=== PATIENT | female | born 1960 | race Hispanic/Latino ===

== ENCOUNTER 2024-01-31 19:51 | Inpatient (IN) | payer OTHER ==
[~2024-01-31] VITALS: Ht 165.1 cm; Wt 77.1 kg
[2024-01-31 20:58] VITALS: TEMP 98.2
[2024-01-31 20:58] LABS: BASOPHILS % 0.2 % (0.0-1.0); HEMATOCRIT 26.1 % (34.2-44.1); HEMOGLOBIN 8.3 g/dL (12.0-16.0); LYMPHOCYTES # (AUTO) 1.9 (1.0-3.2); LYMPHOCYTES % 15.7 % (18.0-39.1); MEAN CORPUSCULAR HEMOGLOBIN 29.7 pg (28-32); MEAN CORPUSCULAR HGB CONC 31.8 g/dL (31-35); MEAN CORPUSCULAR VOLUME 93.5 fL (81-99); MONOCYTES # (AUTO) 0.9 (0.2-0.8); MONOCYTES % 7.2 % (4.4-11.3); NEUTROPHILS # (AUTO) 9.2 (2.1-6.9); NEUTROPHILS % 76.2 % (38.7-80.0); PLATELET COUNT 131 x10e3/uL (140-360); RED BLOOD COUNT 2.79 x10e6/uL (3.6-5.1); RED CELL DISTRIBUTION WIDTH 15.4 % (11.7-14.4); WHITE BLOOD COUNT 12.13 x10e3/uL (4.8-10.8)
[2024-01-31] MEDS: ONDANSETRON HCL INJ 2MG/ML 2ML 2 MG/ML VIAL IV STA (21:03)
[2024-01-31 21:06] LABS: INR 1.49; PROTHROMBIN TIME 18.9 seconds (11.9-14.5)
[2024-01-31] MEDS: SODIUM CHLORIDE 0.9% 1000ML 1,000 ML IV ONE (21:08)
[2024-01-31] MEDS: OCTREOTIDE ACETATE 0.05 MG/ML AMP IV ONE (21:08)
[2024-01-31] MEDS: OCTREOTIDE ACETATE 500 MCG in SODIUM CHLORIDE 0.9% 250ML 249 ML IV SCH (21:08)
[2024-01-31 21:14] LABS: LIPASE 46 U/L (8-78)
[2024-01-31 21:16] LABS: ALBUMIN 3.1 g/dL (3.5-5.0); ALBUMIN/GLOBULIN RATIO 1.1 (0.8-2.0); ANION GAP 21.9 mmol/L (8-16); BILIRUBIN,TOTAL 1.1 mg/dL (0.2-1.2); CALCIUM 8.2 mg/dL (8.4-10.2); CREATININE, SERUM 1.13 mg/dL (0.57-1.11); POTASSIUM 3.9 mmol/L (3.5-5.1)
[2024-01-31 21:17] LABS: ETHANOL < 10.0 mg/dL (0.0-10.0)
[2024-01-31 21:35] LABS: TROPONIN I 0.003 ng/mL (0-0.300)
[2024-01-31 21:37] VITALS: PULSE 122; RESP 15
[2024-01-31] MEDS ORDERED: ACETAMINOPHEN 325 MG TAB PO STA (22:38)
[2024-01-31] MEDS ORDERED: DEXTROSE 50% SYRINGE 50 ML IV PRN (22:45)
[2024-01-31] MEDS ORDERED: ONDANSETRON HCL INJ 2MG/ML 2ML 2 MG/ML VIAL IV PRN (22:45)
[2024-01-31] MEDS ORDERED: SODIUM CHLORIDE FLUSH 10 ML SYR INJ PRN (22:45)
[2024-01-31] MEDS: PHYTONADIONE 10 MG/ML AMP IV ONE (22:58)
[2024-01-31 23:00] VITALS: PULSE 108; RESP 17; O2SAT 99
[2024-01-31 23:41] VITALS: BP 90/61; PULSE 128; RESP 25; TEMP 98.2; O2SAT 100
[2024-02-01] VITALS (58 sets, daily range): BP systolic 82–140; BP diastolic 54–80; PULSE 74–128; RESP 0–27; TEMP 97.3–98.8; O2SAT 92–100
[2024-02-01] MEDS ORDERED: SODIUM CHLORIDE 0.9% 250ML 250 ML ONE (00:03)
[2024-02-01] MEDS: SODIUM CHLORIDE 0.9% 1000ML 250 ML IV SCH (00:15)
[2024-02-01] MEDS: SODIUM CHLORIDE 0.9% 250ML 250 ML IV ONE ×2 (00:32→23:03)
[2024-02-01] MEDS: METOCLOPRAMIDE HCL 10 MG/2ML VIAL IV SCH (04:34)
[2024-02-01] MEDS: PHYTONADIONE 10 MG/ML AMP IV ONE (04:36)
[2024-02-01] MEDS ORDERED: METFORMIN HCL500 MG PO (07:16)
[2024-02-01] MEDS: INSULIN REGULAR, HUMAN 100 UNIT/1 ML SQ SCH (07:30)
[2024-02-01 09:44] LABS: HEMATOCRIT 25.2 % (34.2-44.1); HEMOGLOBIN 8.2 g/dL (12.0-16.0)
[2024-02-01 09:55] LABS: INR 1.52; PROTHROMBIN TIME 19.2 seconds (11.9-14.5)
[2024-02-01 10:02] LABS: ALBUMIN 2.5 g/dL (3.5-5.0); ALBUMIN/GLOBULIN RATIO 1.3 (0.8-2.0); ANION GAP 11.9 mmol/L (8-16); BILIRUBIN,TOTAL 0.7 mg/dL (0.2-1.2); CREATININE, SERUM 0.98 mg/dL (0.57-1.11); POTASSIUM 3.9 mmol/L (3.5-5.1); TOTAL PROTEIN 4.5 g/dL (6.5-8.1)
[2024-02-01 14:29] LABS: CHOL/HDL RATIO 2.6 (3.0-3.6)
[2024-02-01] MEDS: THIAMINE HCL 100 MG TAB PO SCH (16:00)
[2024-02-01] MEDS: FOLIC ACID 1 MG TAB PO SCH (16:00)
[2024-02-01] MEDS: CARVEDILOL 12.5 MG TAB PO ONE (16:01)
[2024-02-01] MEDS: ACETAMINOPHEN 325 MG TAB ONE (17:39)
[2024-02-01 19:21] LABS: HEMOGLOBIN 7.5 g/dL (12.0-16.0)
[2024-02-01 19:29] LABS: HEMATOCRIT 22.8 % (34.2-44.1)
[2024-02-01] MEDS: ACETAMINOPHEN 325 MG TAB PO PRN (23:36)
[2024-02-02] VITALS (27 sets, daily range): BP systolic 93–124; BP diastolic 49–82; PULSE 59–89; RESP 12–23; TEMP 98.2–99.3; O2SAT 94–100
[2024-02-02 06:40] LABS: ANION GAP 10.9 mmol/L (8-16); CALCIUM 7.9 mg/dL (8.4-10.2); CREATININE, SERUM 0.97 mg/dL (0.57-1.11); MAGNESIUM 1.7 MG/DL (1.3-2.1); PHOSPHORUS 3.6 MG/DL (2.3-4.7); POTASSIUM 3.9 mmol/L (3.5-5.1)
[2024-02-02 06:54] LABS: BASOPHILS % 0.2 % (0.0-1.0); HEMATOCRIT 25.5 % (34.2-44.1); HEMOGLOBIN 8.4 g/dL (12.0-16.0); LYMPHOCYTES # (AUTO) 0.9 (1.0-3.2); LYMPHOCYTES % 16.8 % (18.0-39.1); MEAN CORPUSCULAR HEMOGLOBIN 30.4 pg (28-32); MEAN CORPUSCULAR HGB CONC 32.9 g/dL (31-35); MEAN CORPUSCULAR VOLUME 92.4 fL (81-99); MONOCYTES # (AUTO) 0.5 (0.2-0.8); MONOCYTES % 10.5 % (4.4-11.3); NEUTROPHILS # (AUTO) 3.6 (2.1-6.9); NEUTROPHILS % 71.7 % (38.7-80.0); RED BLOOD COUNT 2.76 x10e6/uL (3.6-5.1)
[2024-02-02 06:56] LABS: PLATELET COUNT 50 x10e3/uL (140-360); WHITE BLOOD COUNT 5.07 x10e3/uL (4.8-10.8)
[2024-02-02] MEDS: CEPACOL SORE THROAT LOZENGES PO PRN ×2 (11:54→22:36)
[2024-02-02] MEDS: CARVEDILOL 12.5 MG TAB PO SCH (11:55)
[2024-02-02] MEDS: SODIUM CHLORIDE 0.9% 250ML 250 ML IV ONE (11:56)
[2024-02-02] MEDS ORDERED: GUAIFENESIN/DEXTROMETHORPHAN LIQD 5 ML UDC NG PRN (14:30)
[2024-02-02] MEDS: BENZONATATE 100 MG CAP PO SCH (17:13)
[2024-02-02] MEDS: GUAIFENESIN/DEXTROMETHORPHAN LIQD 5 ML UDC NG SCH (19:05)
[2024-02-02] MEDS: PROPRANOLOL HCL 10 MG TAB PO SCH (22:37)
[2024-02-03] VITALS: BP 124/67; PULSE 70; RESP 18; TEMP 98.5; O2SAT 97
[2024-02-03 04:00] VITALS: BP 115/62; PULSE 71; RESP 18; TEMP 98.4; O2SAT 97
[2024-02-03 06:29] LABS: BASOPHILS % 0.5 % (0.0-1.0); EOSINOPHILS % 0.5 % (0.0-6.0); HEMATOCRIT 26.6 % (34.2-44.1); HEMOGLOBIN 8.6 g/dL (12.0-16.0); LYMPHOCYTES # (AUTO) 1.1 (1.0-3.2); MEAN CORPUSCULAR HEMOGLOBIN 30.3 pg (28-32); MEAN CORPUSCULAR HGB CONC 32.3 g/dL (31-35); MEAN CORPUSCULAR VOLUME 93.7 fL (81-99); MONOCYTES # (AUTO) 0.5 (0.2-0.8); MONOCYTES % 11.3 % (4.4-11.3); NEUTROPHILS # (AUTO) 2.7 (2.1-6.9); NEUTROPHILS % 61.2 % (38.7-80.0); PLATELET COUNT 43 x10e3/uL (140-360); RED BLOOD COUNT 2.84 x10e6/uL (3.6-5.1); WHITE BLOOD COUNT 4.34 x10e3/uL (4.8-10.8)
[2024-02-03 07:08] LABS: ANION GAP 10.7 mmol/L (8-16); CALCIUM 7.8 mg/dL (8.4-10.2); CREATININE, SERUM 0.87 mg/dL (0.57-1.11); MAGNESIUM 1.6 MG/DL (1.3-2.1); PHOSPHORUS 2.9 MG/DL (2.3-4.7); POTASSIUM 3.7 mmol/L (3.5-5.1)
[2024-02-03 08:00] VITALS: BP 134/68; PULSE 72; RESP 16; TEMP 98.2; O2SAT 100
[2024-02-03 09:00] VITALS: BP 134/68; PULSE 72; RESP 16; TEMP 98.2; O2SAT 100
[2024-02-03] MEDS ORDERED: B-1100 MG PO (10:55)
[2024-02-03] MEDS ORDERED: PANTOPRAZOLE SO40 MG PO (10:55)
[2024-02-03] MEDS ORDERED: INDERAL10 MG PO (10:55)
[2024-02-03] MEDS ORDERED: Folic Acid PO (10:55)
[2024-02-03 12:00] VITALS: BP 143/62; PULSE 69; RESP 16; TEMP 98.7; O2SAT 100
== END 2024-02-03 13:21 | disposition home or self-care (01) | DRG 432 ==
LOC: ER 19:55 → ERHOLD 22:45 → ICU 23:25 → MED/SURG 02-02 21:47
PROVIDERS: ADMIT Internal Medicine; ATTEND Internal Medicine
PROC: 30233N1 Transfusion of Nonautologous Red Blood Cells into Peripheral Vein, Percutaneous Approach (ICD-10-PCS; 2024-01-31)
PROC: 06L38CZ Occlusion of Esophageal Vein with Extraluminal Device, Via Natural or Artificial Opening Endoscopic (ICD-10-PCS; principal; 2024-02-01 14:44)
DX: K70.30 Alcoholic cirrhosis of liver without ascites (principal); I85.11 Secondary esophageal varices with bleeding; N17.9 Acute kidney failure, unspecified; E87.20 Acidosis, unspecified; K76.6 Portal hypertension; D64.9 Anemia, unspecified; D69.59 Other secondary thrombocytopenia; I10 Essential (primary) hypertension; E11.9 Type 2 diabetes mellitus without complications; F10.10 Alcohol abuse, uncomplicated; K21.9 Gastro-esophageal reflux disease without esophagitis; Z90.49 Acquired absence of other specified parts of digestive tract; Z90.710 Acquired absence of both cervix and uterus; Z87.891 Personal history of nicotine dependence
CPT/HCPCS: 36415; 43255; 80048; 80053; 80061; 80320; 82140; 82948; 83036; 83690; 83735; 84100; 84484; 85014; 85018; 85025; 85610; 86850; 86900; 86920; 93005; 93306; 94799; 96372; 99252; 99284; J2353; J2354; J2405; J2470; J2765; J3411; J3430; J7030; J7050; P9016; P9017; U0002